=== PATIENT | male | born 1985 | race African-American/Black ===

== ENCOUNTER 2023-05-31 21:04 | Observation (INO) ==
[2023-05-31 21:54] LABS: Basophils # (auto) 0.04 K/uL (0.00-0.20); Basophils % (auto) 0.3 %; Eosinophils # (auto) 0.02 K/uL (0.00-0.50); Eosinophils % (auto) 0.1 %; Hematocrit (blood only) 45.2 % (42.0-52.0); Hemoglobin 14.8 g/dl (14.0-18.0); Immature Granulocytes # (auto) 0.03 K/uL (0.01-0.20); Immature Granulocytes % (auto) 0.2 %; Lymphocytes % (auto) 6.6 %; Mean Corpuscular Hemoglobin 30.6 pg (25.0-34.0); Mean Corpuscular Hgb Conc 32.7 g/dL (32.0-36.0); Mean Corpuscular Volume 93.4 fL (80.0-100.0); Mean Platelet Volume 9.4 fL (9.4-12.4); Monocytes # (auto) 0.67 K/uL (0.11-0.59); Monocytes % (auto) 4.9 %; Neutrophils # (auto) 11.88 K/uL (1.40-6.50); Neutrophils % (auto) 87.9 %; Platelet Count 235 K/uL (130-400); RDW Coefficient of Variation 12.8 % (11.5-14.5); RDW Standard Deviation 43.6 fL (36.4-46.3); Red Blood Count 4.84 M/uL (4.70-6.10); White Blood Count 13.54 K/ul (4.8-10.8)
[2023-05-31 22:09] LABS: Partial Thromboplastin Ratio 0.9; Partial Thromboplastin Time 25.7 Seconds (21.0-31.0)
[2023-05-31] MEDS ORDERED: ONDANSETRON INJ 2 MG/ML 2 ML VIAL IV STA (22:35)
[2023-05-31] MEDS ORDERED: MoRPHine SULFATE 4 MG/ML 1 ML CARP\\VIAL IV STA (22:35)
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
[2023-05-31 22:42] LABS: Albumin Globulin Ratio 1.6 (0.9-2); Albumin Level 4.4 gm/dl (3.4-5.0); BUN Creatinine Ratio 13.8 (10-20); Bilirubin,Total 0.5 mg/dl (0.2-1.0); Calcium 9.5 mg/dl (8.6-10.3); Creatinine Clr Calc Pharmacy 126.1 ml/min; Est GFR (African American) 127.8 ml/min; Est GFR (Non-African American) 110.3 ml/min; Globulin 2.7 gm/dl (2.5-4.0); Potassium 3.9 mmol/L (3.5-5.1); Total Protein 7.1 gm/dl (6.0-8.3)
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
[2023-06-01] MEDS ORDERED: POLYETHYLENE (MIRALAX) 17 GM PACK PO PRN (06:36)
[2023-06-01] MEDS ORDERED: HYDROmorphone INJ 0.5 MG/0.5 ML SYR IV PRN (06:36)
[2023-06-01] MEDS ORDERED: ACETAMINOPHEN 325 MG TAB PO PRN (06:36)
[2023-06-01] MEDS ORDERED: NITROGLYCERIN SL 0.4 MG/TAB TAB SL PRN (06:36)
[2023-06-01] MEDS ORDERED: Patient's ALLERGY Info needs ENTERED STA (06:39)
[2023-06-01] MEDS: SODIUM CHLORIDE 0.9% 1,000 ML IV SCH ×2 (06:52→15:05)
[2023-06-01 08:31] LABS: BUN Creatinine Ratio 11.8 (10-20); Calcium 9.1 mg/dl (8.6-10.3); Creatinine Clr Calc Pharmacy 144.4 ml/min; Est GFR (African American) 135.1 ml/min; Est GFR (Non-African American) 116.6 ml/min; Magnesium 1.9 mg/dl (1.7-2.4)
[2023-06-01] MEDS: lisinopril 10 MG TAB PO SCH (08:39)
[2023-06-01 08:42] LABS: Basophils # (auto) 0.04 K/uL (0.00-0.20); Basophils % (auto) 0.4 %; Eosinophils # (auto) 0.01 K/uL (0.00-0.50); Eosinophils % (auto) 0.1 %; Hematocrit (blood only) 45.4 % (42.0-52.0); Hemoglobin 14.5 g/dl (14.0-18.0); Immature Granulocytes # (auto) 0.01 K/uL (0.01-0.20); Immature Granulocytes % (auto) 0.1 %; Lymphocytes % (auto) 12.7 %; Mean Corpuscular Hemoglobin 29.8 pg (25.0-34.0); Mean Corpuscular Hgb Conc 31.9 g/dL (32.0-36.0); Mean Corpuscular Volume 93.2 fL (80.0-100.0); Mean Platelet Volume 9.9 fL (9.4-12.4); Monocytes # (auto) 0.69 K/uL (0.11-0.59); Monocytes % (auto) 7.3 %; Neutrophils # (auto) 7.48 K/uL (1.40-6.50); Neutrophils % (auto) 79.4 %; Platelet Count 228 K/uL (130-400); RDW Coefficient of Variation 12.7 % (11.5-14.5); RDW Standard Deviation 43.5 fL (36.4-46.3); Red Blood Count 4.87 M/uL (4.70-6.10); White Blood Count 9.43 K/ul (4.8-10.8)
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
[2023-06-01] MEDS ORDERED: INFLUENZA VIRUS QUADRIVALENT VACCINE (IIV4) 0.5 ML SYR IM ONE (14:38)
[2023-06-01] MEDS: IBUPROFEN 800 MG TAB PO SCH ×2 (16:48→20:59)
[2023-06-02] MEDS: IBUPROFEN 800 MG TAB PO SCH ×3 (08:37→21:48)
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
[2023-06-02] MEDS: lisinopril 10 MG TAB PO SCH (09:22)
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
[2023-06-02] MEDS: amLODIPine BESYLATE 5 MG TAB PO SCH (18:40)
[2023-06-03 06:27] LABS: Basophils # (auto) 0.03 K/uL (0.00-0.20); Basophils % (auto) 0.6 %; Eosinophils # (auto) 0.09 K/uL (0.00-0.50); Eosinophils % (auto) 1.7 %; Hematocrit (blood only) 46.5 % (42.0-52.0); Lymphocytes # (auto) 1.97 K/uL (1.20-3.40); Lymphocytes % (auto) 37.8 %; Mean Corpuscular Hemoglobin 29.7 pg (25.0-34.0); Mean Corpuscular Hgb Conc 32.3 g/dL (32.0-36.0); Mean Corpuscular Volume 92.1 fL (80.0-100.0); Mean Platelet Volume 9.7 fL (9.4-12.4); Monocytes # (auto) 0.46 K/uL (0.11-0.59); Monocytes % (auto) 8.8 %; Neutrophils # (auto) 2.66 K/uL (1.40-6.50); Neutrophils % (auto) 51.1 %; Platelet Count 219 K/uL (130-400); RDW Coefficient of Variation 12.6 % (11.5-14.5); RDW Standard Deviation 42.7 fL (36.4-46.3); Red Blood Count 5.05 M/uL (4.70-6.10); White Blood Count 5.21 K/ul (4.8-10.8)
[2023-06-03 06:45] LABS: BUN Creatinine Ratio 14.3 (10-20); Calcium 9.1 mg/dl (8.6-10.3); Creatinine Clr Calc Pharmacy 120.4 ml/min; Est GFR (African American) 129.6 ml/min; Est GFR (Non-African American) 111.9 ml/min; Potassium 3.6 mmol/L (3.5-5.1)
[2023-06-03] MEDS: amLODIPine BESYLATE 5 MG TAB PO SCH (09:12)
[2023-06-03] MEDS: IBUPROFEN 800 MG TAB PO SCH ×3 (09:12→20:19)
[2023-06-03] MEDS: lisinopril 10 MG TAB PO SCH (09:12)
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
[2023-06-04 07:30] VITALS: O2SAT 98
[2023-06-04] MEDS: lisinopril 10 MG TAB PO SCH (08:16)
[2023-06-04] MEDS: IBUPROFEN 800 MG TAB PO SCH ×3 (08:17→21:31)
[2023-06-04] MEDS: DOCUSATE SODIUM/SENNA 50/8.6MG TAB PO SCH ×2 (11:27→21:31)
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
[2023-06-04] MEDS ORDERED: oxyCODONE HCL IR 5 MG TAB (IMMEDIATE RELEASE) PO PRN (14:37)
[2023-06-04] MEDS ORDERED: HYDROmorphone INJ 0.5 MG/0.5 ML SYR IV PRN (14:37)
[2023-06-04 21:45] VITALS: RESP 16
[2023-06-05 07:03] VITALS: BP 138/92; PULSE 73; TEMP 97.7
[2023-06-05] MEDS: lisinopril 10 MG TAB PO SCH (09:08)
[2023-06-05] MEDS: IBUPROFEN 800 MG TAB PO SCH (09:08)
[2023-06-05] MEDS: DOCUSATE SODIUM/SENNA 50/8.6MG TAB PO SCH (09:08)
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
== END 2023-06-05 12:41 | DRG 125 ==
LOC: EDINP 21:04 → ED 21:04 → 2W 06-01 13:31 → SUATTDRO 06-01 18:00 → 3E 06-03 01:54
DX: S01.511A Laceration without foreign body of lip, initial encounter; S05.11XA Contusion of eyeball and orbital tissues, right eye, initial encounter; Y04.0XXA Assault by unarmed brawl or fight, initial encounter; Y92.142 Bathroom in prison as the place of occurrence of the external cause; S00.83XA Contusion of other part of head, initial encounter; I10 Essential (primary) hypertension; S01.112A Laceration without foreign body of left eyelid and periocular area, initial encounter; K59.00 Constipation, unspecified